=== PATIENT | male | born 1930 | race Caucasian/White ===

== ENCOUNTER 2016-05-21 20:10 | Emergency (ER) | payer OTHER, MEDICAID ==
[~2016-05-21] VITALS: Ht 170.2 cm; Wt 62.5 kg
[~2016-05-21 20:10] MED LIST: BENA20TA48 PO; CHOL100062 PO; DOXA2TAB PO; FINA5TAB4 PO; MELO-109 PO; SIMV20TA97 PO
[2016-05-21 21:08] VITALS: Ht 170.2 cm; Wt 62.5 kg
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
[2016-05-22 01:07] LABS: BASOPHILS % 0.4 % (0.0-2.0); EOSINOPHILS # 0.1 10^3/ul (0.0-0.5); HEMATOCRIT 42.9 % (42.0-52.0); HEMOGLOBIN 14.5 g/dl (14.0-18.0); LYMPHOCYTES # 1.4 10^3/ul (0.8-2.9); LYMPHOCYTES % 17.5 % (15.0-51.0); MEAN CORPUSCULAR HEMOGLOBIN 32.9 pg (29.0-33.0); MEAN CORPUSCULAR HGB CONC 33.7 g/dl (32.0-37.0); MEAN CORPUSCULAR VOLUME 97.5 fl (82.0-101.0); MEAN PLATELET VOLUME 9.1 fl (7.4-10.4); MONOCYTE # 0.9 10^3/ul (0.3-0.9); NEUTROPHIL # 5.6 10^3/ul (1.6-7.5); NEUTROPHILS % 70.1 % (39.0-77.0); PLATELET COUNT 186 10^3/UL (140-440); RED CELL DISTRIBUTION WIDTH 13.4 % (11.5-14.5)
[2016-05-22 01:08] LABS: CONDITION 1; INR 1.15; PROTIME 14.7 Sec (12.2-14.2); PT RATIO 1.1
[2016-05-22 01:09] LABS: PARTIAL THROMBOPLASTIN TIME 30.2 Sec (25.0-35.0); POTASSIUM 4.8 mmol/L (3.5-5.1)
[2016-05-22 01:12] LABS: CALCIUM 9.5 mg/dl (8.4-10.2); CREATININE 1.35 mg/dl (0.61-1.24)
--- NOTE | 2016-05-22 01:26 | RADRPT ---
PROCEDURE: XR Chest. CLINICAL INDICATION: Syncope. TECHNIQUE: Single frontal chest x-ray. COMPARISON: None. FINDINGS: The cardiomediastinal silhouette is unremarkable. There is no CHF.. No focal infiltrate is seen. T here is no pleural effusion. There is no pneumothorax. There is a dextroscoliosis with degenerativ e changes of the thoracic spine.. IMPRESSION: No acute abnormality. Dextroscoliosis. RPTAT: HMVK .Bret Peterson MD, Date Time Electronically viewed and signed by .Bret Peterson MD, on 05/22/2016 01:25 .K/
--- NOTE | 2016-05-22 01:28 | RADRPT ---
PROCEDURE: Noncontrast CT Head. CLINICAL INDICATION: Syncope. TECHNIQUE: Noncontrast CT of the head was obtained. The administered radiation dose was CTDI vol = 43 mGy, DLP = 720 mGy-cm. COMPARISON: 11/10/2015 FINDINGS: The ventricles and cortical sulci are moderately enlarged. There is moderate decreased attenuation within the periventricular and subcortical white matter compatible with chronic microvascular change s. There is no acute intracranial hemorrhage or extra-axial fluid collection. There is no mass effect . No midline shift is identified. There is no loss of yeager-white differentiation to suggest acute in farction. The orbits are within normal limits. The paranasal sinuses are well aerated. No destructive osseous lesion is identified. IMPRESSION: No acute findings. Moderate diffuse parenchymal volume loss and chronic microvascular changes. RPTAT: HIKT .Epi Mercado MD, Date Time Electronically viewed and signed by .Epi Mercado MD, on 05/22/2016 01:28 .T/
--- NOTE | 2016-05-22 01:29 | RADRPT ---
PROCEDURE: CT Cervical Spine without contrast. CLINICAL INDICATION: Trauma TECHNIQUE: Noncontrast CT of the cervical spine was performed with axial images. Coronal and sagitta l images were also performed. The administered radiation dose was CTDI vol = 22 mGy, DLP = 524 mGy- cm. COMPARISON: There are no similar studies submitted for comparison. FINDINGS: Multilevel cervical spondylotic changes are present with disk degenerative changes, uncovertebral an d facet degenerative changes. There is mild to moderate neural foraminal narrowing throughout the c ervical spine. Vertebral body stature and alignment are maintained. No acute fracture or subluxation is identified. The paravertebral and paraspinous soft tissues are unremarkable. IMPRESSION: No acute fracture or subluxation. RPTAT: HIKT .Epi Mercaod MD, Date Time Electronically viewed and signed by .Epi Mercado MD, on 05/22/2016 01:29 .T/
[2016-05-22] MEDS ORDERED: ULT50 PO (02:07)
[2016-05-22 02:45] VITALS: BP 145/67; PULSE 81; RESP 18; TEMP 97
== END 2016-05-22 02:45 | disposition home or self-care (01) ==
LOC: E/R 20:10
DX: R42 Dizziness and giddiness (principal); S29.019A Strain of muscle and tendon of unspecified wall of thorax, initial encounter; I10 Essential (primary) hypertension; R55 Syncope and collapse; W01.198A Fall on same level from slipping, tripping and stumbling with subsequent striking against other object, initial encounter; Y92.9 Unspecified place or not applicable
CPT/HCPCS: 36415; 70450; 71010; 72125; 80048; 82962; 85025; 85610; 85730; 93005

== ENCOUNTER 2016-09-15 13:06 | Observation (INO) | payer OTHER, MEDICAID ==
[~2016-09-15] VITALS: Ht 154.9 cm; Wt 60.5 kg
[~2016-09-15 13:06] MED LIST changes: +SIMV20TA PO; -SIMV20TA97 PO; +TRAM50TA2 PO
[2016-09-15] MEDS ORDERED: SOD CHLORIDE 0.9% 1,000 ML IV STA (15:41)
[2016-09-15 15:56] LABS: ADD SCAN DIFF NO
[2016-09-15] MEDS ORDERED: ASPIRIN 81 MG TAB PO ONE (16:00)
[2016-09-15 16:01] LABS: BASOPHILS % 0.6 % (0.0-2.0); EOSINOPHILS # 0.1 10^3/ul (0.0-0.5); EOSINOPHILS % 1.6 % (0.0-7.0); HEMATOCRIT 46.8 % (42.0-52.0); HEMOGLOBIN 15.4 g/dl (14.0-18.0); LYMPHOCYTES # 1.7 10^3/ul (0.8-2.9); LYMPHOCYTES % 24.2 % (15.0-51.0); MEAN CORPUSCULAR HEMOGLOBIN 32.7 pg (29.0-33.0); MEAN CORPUSCULAR HGB CONC 32.9 g/dl (32.0-37.0); MEAN CORPUSCULAR VOLUME 99.4 fl (82.0-101.0); MEAN PLATELET VOLUME 10.8 fl (7.4-10.4); MONOCYTE # 0.8 10^3/ul (0.3-0.9); MONOCYTES % 11.6 % (0.0-11.0); NEUTROPHIL # 4.2 10^3/ul (1.6-7.5); NEUTROPHILS % 61.3 % (39.0-77.0); PLATELET COUNT 184 10^3/UL (140-415); RED BLOOD COUNT 4.71 10^6/ul (4.70-6.10); RED CELL DISTRIBUTION WIDTH 12.8 % (11.5-14.5); WHITE BLOOD COUNT 6.9 10^3/ul (4.8-10.8)
[2016-09-15] MEDS ORDERED: ATOR10TA65 PO (16:09)
--- NOTE | 2016-09-15 16:17 | RADRPT ---
PROCEDURE: XR Chest. CLINICAL INDICATION: Shortness of breath TECHNIQUE: Single frontal chest x-ray. COMPARISON: 05/22/2016. FINDINGS: The lungs are clear. No focal opacification is seen. No pneumothorax or pleural effusion is seen. Aortic arch atherosclerotic calcifications are present. Otherwise, the cardiomediastinal silhouett e is unremarkable. There is a mild thoracic dextroscoliosis. IMPRESSION: 1. No evidence of acute cardiopulmonary disease. 2. Aortic atherosclerosis. 3. Mild thoracic dextroscoliosis. RPTAT: EE .Chente Schaffer MD, Date Time Electronically viewed and signed by .Chente Schaffer MD, MD on 09/15/2016 16:17 .A/
[2016-09-15 16:22] LABS: ALBUMIN 4.4 g/dl (3.3-4.9); CHLORIDE 98 mmol/L (97-110)
[2016-09-15 16:23] LABS: POTASSIUM 3.9 mmol/L (3.5-5.1); SODIUM 139 mmol/L (135-144)
[2016-09-15 16:25] LABS: CREATININE 0.87 mg/dl (0.61-1.24)
[2016-09-15 16:26] LABS: ALANINE AMINOTRANSFERASE 31 IU/L (13-69); ALBUMIN/GLOBULIN RATIO 1.22; ALKALINE PHOSPHATASE 69 IU/L (42-121); ANION GAP 17 (8-16); ASPARTATE AMINO TRANSFERASE 26 IU/L (15-46); BILIRUBIN,INDIRECT 0.2 mg/dl (0-1.1); BILIRUBIN,TOTAL 0.2 mg/dl (0.2-1.3); BLOOD UREA NITROGEN 17 mg/dl (7-20); CALCIUM 9.1 mg/dl (8.4-10.2); CARBON DIOXIDE 28 mmol/L (21-31); GLUCOSE 104 mg/dl (70-220)
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
[2016-09-15 16:54] LABS: TROPONIN-I < 0.012 ng/ml (0.00-0.12)
[2016-09-15 17:27] LABS: ADD UMIC NO; URINE BILIRUBIN (Dip) NEGATIVE (NEGATIVE); URINE BLOOD (Dip) NEGATIVE (NEGATIVE); URINE COLOR LT. YELLOW (YELLOW); URINE GLUCOSE (Dip) NEGATIVE (NEGATIVE); URINE KETONES (Dip) NEGATIVE (NEGATIVE); URINE LEUKOCYTE ESTERASE (Dip) NEGATIVE (NEGATIVE); URINE NITRITE (Dip) NEGATIVE (NEGATIVE); URINE TOTAL PROTEIN (Dip) NEGATIVE (NEGATIVE); URINE UROBILINOGEN (Dip) 0.2 E.U./dL (0.1-1.0)
[2016-09-15 18:01] VITALS: TEMP 98
[2016-09-15] MEDS ORDERED: morphine 2 MG INJ IV PRN (18:30)
[2016-09-15] MEDS ORDERED: ZOLPIDEM 5 MG TAB PO PRN (18:30)
[2016-09-15] MEDS ORDERED: ACETAMINOPHEN 325 MG TAB PO PRN (18:30)
[2016-09-15] MEDS ORDERED: ONDANSETRON 4 MG INJ IV PRN (18:30)
[2016-09-15] MEDS ORDERED: NITROGLYCERIN (SL) 0.4 MG TAB SL PRN (18:30)
[2016-09-15] MEDS ORDERED: HYDROCODONE/APAP (5/325) TAB PO PRN (18:30)
[2016-09-15] MEDS ORDERED: NACL 0.9% 3 ML SYG IV SCH (18:30)
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
[2016-09-15 19:48] VITALS: Ht 154.9 cm; Wt 60.5 kg
[2016-09-15 20:00] VITALS: BP 141/72; RESP 20
[2016-09-15 20:16] VITALS: PULSE 78
[2016-09-16] VITALS (10 sets, daily range): BP systolic 108–134; BP diastolic 58–72; PULSE 69–79; RESP 17–20
[2016-09-16 08:38] LABS: ADD SCAN DIFF NO
[2016-09-16 08:43] LABS: BASOPHILS % 0.5 % (0.0-2.0); EOSINOPHILS # 0.1 10^3/ul (0.0-0.5); EOSINOPHILS % 2.1 % (0.0-7.0); HEMATOCRIT 48.8 % (42.0-52.0); HEMOGLOBIN 15.5 g/dl (14.0-18.0); LYMPHOCYTES # 1.8 10^3/ul (0.8-2.9); LYMPHOCYTES % 30.6 % (15.0-51.0); MEAN CORPUSCULAR HEMOGLOBIN 31.8 pg (29.0-33.0); MEAN CORPUSCULAR HGB CONC 31.8 g/dl (32.0-37.0); MEAN CORPUSCULAR VOLUME 100.2 fl (82.0-101.0); MEAN PLATELET VOLUME 11.3 fl (7.4-10.4); MONOCYTE # 0.7 10^3/ul (0.3-0.9); MONOCYTES % 11.9 % (0.0-11.0); NEUTROPHIL # 3.1 10^3/ul (1.6-7.5); NEUTROPHILS % 54.4 % (39.0-77.0); PLATELET COUNT 166 10^3/UL (140-415); RED BLOOD COUNT 4.87 10^6/ul (4.70-6.10); RED CELL DISTRIBUTION WIDTH 13.2 % (11.5-14.5); WHITE BLOOD COUNT 5.8 10^3/ul (4.8-10.8)
[2016-09-16] MEDS ORDERED: BENAZEPRIL 20 MG TAB PO SCH (09:00)
[2016-09-16] MEDS ORDERED: FINASTERIDE 5 MG TAB PO SCH (09:00)
[2016-09-16] MEDS ORDERED: CHOLECALCIFEROL 2,000 UNIT CAP PO SCH (09:00)
[2016-09-16] MEDS ORDERED: ATORVASTATIN 10 MG TAB PO SCH (09:00)
[2016-09-16 09:05] LABS: POTASSIUM 4.5 mmol/L (3.5-5.1)
[2016-09-16 09:07] LABS: CREATININE 0.87 mg/dl (0.61-1.24)
[2016-09-16 09:08] LABS: CALCIUM 9.2 mg/dl (8.4-10.2); MAGNESIUM 1.9 mg/dl (1.7-2.5); PHOSPHORUS 3.7 mg/dl (2.5-4.9)
[2016-09-16 09:14] LABS: CHOL/HDL RATIO 2.4 RATIO
--- NOTE | 2016-09-16 10:45 | PDOCDIS ---
Discharge Instructions CONDITION Patient Condition: Good HOME CARE INSTRUCTIONS: Diet Instructions: Regular ACTIVITY: Activity Restrictions: No Restrictions FOLLOW UP/APPOINTMENTS Appointments F/U WITH YOUR PCP IN 1-2 WEEKS AND WITH A SUPERVISOR [employer] JENNIFER TALLEY September 16, 2016 10:45
--- NOTE | 2016-09-16 15:19 | DS ---
DATE OF ADMISSION: 09/15/2016 DATE OF DISCHARGE: 09/16/2016 DISCHARGE DIAGNOSES: 1. Chest pain, now resolved. Troponins negative. EKG shows no signs of ischemia. 2. Hypertension. Continue home medicines. 3. Dyslipidemia. Continue home medications. 4. Benign prostatic hypertrophy. Continue home medications. HOSPITAL COURSE: The patient is an 86-year-old male with a history of dyslipidemia, BPH, and hypert ension. The patient had chest pain for several days, but was chest pain free on the day of admissio n and the day prior. The patient reported he had an EKG at his PCP's office that showed multiple atr ial premature complexes and was told to present to the ED. EKG in the office showed no ST elevation s. The patient was chest pain free throughout this hospitalization. There were no unusual findings on telemetry. Troponins were negative x3. Lipase was slightly elevated on arrival, but resolved. A1c was checked and it was 6.0. His LDL was 39. The patient's UA was within normal limits. Chest x-ray was also showing no acute findings. He did have aortic atherosclerosis and mild thoraci c dextroscoliosis. The patient was felt to be stable for discharge. He does have good followup. The patient was told to follow with his PCP and his power manager. On the day of discharge the patient' s vitals, labs, and physical exam were stable. He had no acute complaints. He had no complaints of any chest pain throughout the hospitalization and on the day of discharge, and his questions were a nswered. CONDITION ON DISCHARGE: Stable. DISPOSITION: To home. MEDICATIONS: Patient is to continue his usual home medications. No new medications were prescribed . FOLLOWUP: The patient is to follow up with his PCP and power manager. Greater than 30 minutes was spent coordinating the discharge of this patient. Dictated By: JENNIFER PEOPLES/NTS Conf#: [id number] DID#: [id number]
[2016-09-17] MEDS ORDERED: ASPIRIN 81 MG TAB PO SCH (09:00)
== END 2016-09-16 16:40 | disposition home or self-care (01) ==
LOC: E/R 13:06 → INTOOBSV 17:44 → MS4 17:44
PROVIDERS: ADMIT Internal Medicine; ATTEND Internal Medicine
DX: R07.9 Chest pain, unspecified (principal); I10 Essential (primary) hypertension; E78.5 Hyperlipidemia, unspecified; N40.0 Benign prostatic hyperplasia without lower urinary tract symptoms; Z83.3 Family history of diabetes mellitus
CPT/HCPCS: 36415; 71010; 80048; 80053; 80061; 81003; 83036; 83690; 83735; 84100; 84484; 85025; 93005; 99285; G0378; J7030; 99217